=== PATIENT | female | born 1940 | race Caucasian/White ===

== ENCOUNTER → 2016-05-09 | Outpatient (CLI) | payer MEDICARE ==
[~2016-05-09] MED LIST: APRESOLINE-DPS10 MG PO; ASPIRIN EC81 MG PO; EPIPEN 2-P0.3 MG/0.3 SQ; FAMOTIDINE20 MG PO; FEOSOL-DPS325 MG PO; HUMALOG100 UNIT/1 SQ; HYDROCODON-ACE1 EAC4 PO; LANTUS100 UNITS/ SQ; LASIX40 M1 PO; LOMOTIL 2.5-0.1 EACH PO; METOPROLOL SUCC25 MG PO; NEURONTIN DPS300 MG PO; NORVASC5 MG PO; NYSTATIN1 EAC1 TP; PAXIL40 MG PO; PRAVASTATIN SOD10 MG PO; QUESTRAN DPS4 GM PO; SYNTHROID150 MCG PO; TYLENOL DPS325 MG PO
== END | disposition home or self-care (01) ==
LOC: RAD.S 10:22
DX: Z12.31 Encounter for screening mammogram for malignant neoplasm of breast (principal); R92.1 Mammographic calcification found on diagnostic imaging of breast